=== PATIENT | female | born 2005 | race Hispanic/Latino ===

== ENCOUNTER 2023-03-10 03:54 | Emergency (ER) | payer OTHER ==
[2023-03-10] MEDS ORDERED: Lidocaine 1% w/Epinephrine 1:100K 20 ML VIAL ONE (04:21)
== END 2023-03-10 05:52 | disposition home or self-care (01) ==
LOC: ERS 03:54
DX: F10.129 Alcohol abuse with intoxication, unspecified (principal); S01.81XA Laceration without foreign body of other part of head, initial encounter; S80.12XA Contusion of left lower leg, initial encounter; S80.11XA Contusion of right lower leg, initial encounter; S50.02XA Contusion of left elbow, initial encounter; W18.30XA Fall on same level, unspecified, initial encounter
CPT/HCPCS: 12013; 70450

== ENCOUNTER 2023-03-17 14:42 | Emergency (ER) | payer OTHER | END 2023-03-17 15:22 | disposition home or self-care (01) | LOC: ERS 14:42 | DX: S01.81XD Laceration without foreign body of other part of head, subsequent encounter (principal); W18.30XD Fall on same level, unspecified, subsequent encounter ==